=== PATIENT | female | born 1965 | race African-American/Black ===

== ENCOUNTER 2018-06-15 08:26 | Outpatient (CLI) | payer MEDICARE, MEDICAID ==
--- NOTE | 2018-06-15 09:22 | ULT ---
ABDOMINAL ULTRASOUND: 06/15/2018 HISTORY: Epigastric abdominal pain and gastroesophageal reflux. FINDINGS: The liver is enlarged, in a craniocaudal dimension, measuring 20 cm. The liver demonstrates increase d echogenicity, likely attributable to diffuse fatty infiltration. There is a hypoechoic area seen w ithin the posterior aspect of the right hepatic lobe. This area measures 2.9 cm x 2.6 cm x 1.4 cm. This could potentially represent an area of focal fatty sparing, but, given the location of the area of diminished attenuation, follow-up evaluation with CT scan is recommended. The gallbladder is not visualized, consistent with the patient's reported history of a prior cholecys tectomy. The common duct is normal in diameter for post cholecystectomy changes, measuring 0.6 cm in diameter. The limited visualized portions of the pancreas, the limited visualized portions of the IVC, the visu alized portions of the abdominal aorta, the spleen, and the bilateral kidneys demonstrate a normal so nographic appearance. The right kidney measures 9.8 cm in length, with the left kidney measuring 10. 5 cm in length. There is thickening of the renal cortex, in the mid portion, right kidney, that gives a mass-like enrike earance. This is probably related to a dromedary hump and does not have the appearance of a mass; ho wever, this could also be evaluated on CT exam. IMPRESSION: 1. Diffuse fatty infiltration of the liver. There is a mass-like area of diminished attenuation see n at the posterior aspect of the right hepatic lobe, which may potentially represent an area of focal fatty sparing, but a CT scan abdomen with three-phase imaging is recommended for further evaluation, to exclude a lesion. 2. Hepatomegaly. 3. Post cholecystectomy changes. POS: [facility]
== END 2018-06-15 08:27 | disposition home or self-care (01) ==
LOC: BICULT 08:26
PROVIDERS: ATTEND Internal Medicine Gastroenterology
DX: K21.9 Gastro-esophageal reflux disease without esophagitis (principal); R16.0 Hepatomegaly, not elsewhere classified; Z90.49 Acquired absence of other specified parts of digestive tract; K76.0 Fatty (change of) liver, not elsewhere classified
CPT/HCPCS: 76700

== ENCOUNTER 2018-09-14 12:10 | Emergency (ER) | payer MEDICAID, MEDICARE ==
--- NOTE | 2018-09-14 13:11 | RAD ---
RIGHT KNEE 4 VIEWS: HISTORY: Right knee pain FINDINGS: Degenerative changes are present. No acute fracture, dislocation or bony destruction is seen. No join t effusion is identified.
[2018-09-14] MEDS ORDERED: HYDROcodone/Acetaminophen 10/325 mg Tablet ONE (13:13)
--- NOTE | 2018-09-14 13:22 | RAD ---
RIGHT LEG 2 VIEWS HISTORY: Right Knee pain, right leg pain FINDINGS: the right tibia and fibula are intact. There are degenerative changes in the right knee joint.
== END 2018-09-14 13:53 | disposition home or self-care (01) ==
LOC: ERS 12:10
DX: M23.91 Unspecified internal derangement of right knee (principal); F32.9 Major depressive disorder, single episode, unspecified

== ENCOUNTER 2018-12-03 13:58 | Outpatient (CLI) | payer MEDICARE, MEDICAID ==
--- NOTE | 2018-12-03 14:09 | RAD ---
EXAM: Left knee: 4 views INDICATIONS: Knee pain COMPARISON: None. FINDINGS: Mild degenerative change. Joint spaces are preserved. No fracture or acute abnormality. No joint effusion. IMPRESSION: Mild degenerative change
== END 2018-12-03 13:59 | disposition home or self-care (01) ==
LOC: RAD-FRANK 13:58
PROVIDERS: ATTEND Internal Medicine
DX: M25.562 Pain in left knee (principal); M17.12 Unilateral primary osteoarthritis, left knee

== ENCOUNTER 2019-03-11 16:19 | Outpatient (CLI) | payer MEDICARE, MEDICAID ==
--- NOTE | 2019-03-11 16:59 | RAD ---
2-3 VIEW LUMBAR SPINE RADIOGRAPHIC SERIES: Date: 03-11-91 Indication: Low back pain. FINDINGS: Prominent anterior osteophytes are present at the L2-3 and L3-4 levels. No evidence of compression fr acture. There is a grade I spondylolisthesis at L5-S1 with associated disc degeneration and endplate sclerosis/irregularity. There is also irregularity/lucency at the posterior elements which may relate to an L5 pars defect. There is a square shaped radiodensity overlying the central pelvis on the fron jeannie view, not further localized. IMPRESSION: Degenerative changes of the lumbar spine most pronounced at L5-S1. POS: [facility]
== END 2019-03-11 16:20 | disposition home or self-care (01) ==
LOC: RAD-FRANK 16:19
PROVIDERS: ATTEND Internal Medicine
DX: M54.9 Dorsalgia, unspecified (principal); G89.29 Other chronic pain; M47.816 Spondylosis without myelopathy or radiculopathy, lumbar region; M47.817 Spondylosis without myelopathy or radiculopathy, lumbosacral region
CPT/HCPCS: 72100